=== PATIENT | male | born 1970 | race Caucasian/White ===

== ENCOUNTER 2020-03-16 17:02 | Emergency (ER) | payer OTHER ==
[~2020-03-16] VITALS: Ht 175.3 cm; Wt 125.2 kg
[2020-03-16] MEDS ORDERED: LISINOPRIL2.5 MG PO (17:19)
[2020-03-16] MEDS ORDERED: NORVASC 2.5 MG2.5 M1 PO (17:19)
[2020-03-16] MEDS ORDERED: LEVOTHYROXINE100 MC1 PO (17:19)
[2020-03-16 19:53] LABS: ABSOLUTE EOSINOPHILS 0.3 thou/uL (0.0-0.7); ABSOLUTE LYMPHOCYTES 3.4 thou/uL (0.8-5.3); ABSOLUTE MONOCYTES 0.7 thou/uL (0.0-1.2); ABSOLUTE NEUTROPHILS 5.6 thou/uL (1.6-8.1); BASOPHILS 0.3 %; EOSINOPHILS 3.1 %; HEMOGLOBIN 14.3 gm/dL (14.0-18.0); LYMPHOCYTES 34.2 %; MCH 30.1 pg (26.0-34.0); MCHC 34.1 g/dL (28.0-37.0); MCV 88.3 fL (80.0-100.0); MONOCYTES 6.6 %; MPV 7.7 fl. (7.2-11.1); NUCLEATED RBCS 0 /100WBC; PLATELET COUNT* 202 thou/uL (150-400); POLYS 55.8 %; RBC 4.76 mil/uL (4.50-6.00); WBC 10.1 thou/uL (4.0-11.0)
[2020-03-16 20:04] LABS: CALCIUM 8.5 mg/dL (8.5-10.1); POTASSIUM 3.9 mmol/L (3.5-5.1)
[2020-03-16 20:06] LABS: PROTIME 10.7 Seconds (9.20-11.50)
[2020-03-16 20:08] LABS: ALBUMIN 3.8 g/dL (3.4-5.0); TOTAL BILIRUBIN 0.6 mg/dL (<0.1-1.0); TOTAL PROTEIN 7.1 g/dL (6.4-8.2)
[2020-03-16] MEDS ORDERED: MELOXICAM15 MG PO (20:18)
[2020-03-16 20:25] VITALS: BP 162/99
== END 2020-03-16 20:27 | disposition home or self-care (01) ==
LOC: M.ERS 17:02
PROVIDERS: Personal Emergency Response Attendant
DX: M71.21 Synovial cyst of popliteal space [Baker], right knee (principal); I10 Essential (primary) hypertension; E03.9 Hypothyroidism, unspecified